=== PATIENT | female | born 1980 ===

== ENCOUNTER 2018-11-07 12:58 | Emergency (ER) | payer MEDICAID, OTHER ==
[2018-11-07 12:58] VITALS: BMI 23.9
[2018-11-07 13:12] VITALS: BP 119/84; PULSE 104; RESP 18; TEMP 98.3; O2SAT 98
--- NOTE | 2018-11-07 14:47 | C.PDOC ---
History Of Present Illness 38 y/o female with hx anxiety and depression c/o worsening symptoms in last 4 days due to relations ship issues. pt reports not sleeping or eating well. c/o nausea and insomnia. denies hi, si and ah. pt was on trazadone and zoloft in past but stopped due to sedative nature of medications. has appt with her psychiatrist next week. Time Seen by Provider: 11/07/18 13:33 Chief Complaint (Nursing): Psychiatric Evaluation History Per: Patient History/Exam Limitations: no limitations Onset/Duration Of Symptoms: Days Current Symptoms Are (Timing): Still Present Past Medical History Reviewed: Historical Data, Nursing Documentation, Vital Signs Vital Signs: Last Vital Signs Temp 98.3 F 11/07/18 13:09 Pulse 104 H 11/07/18 13:09 Resp 18 11/07/18 13:09 BP 119/84 11/07/18 13:09 Pulse Ox 98 11/07/18 13:09 - Medical History PMH: Anxiety, Depression, Post Traumatic Stress Disorder (SEXUAL TRAUMA) Surgical History: Cholecystectomy - [facility] Procedures ANESTH INJECT-SPIN CANAL (04/22/14) MONITORING NOS (03/24/14) INJECT/INFUSE NEC (03/24/14) MANUAL ASSIST DELIV NEC (04/22/14) Family History: States: Diabetes, Hypertension - Social History Hx Alcohol Use: No Hx Substance Use: No Review Of Systems Constitutional: Negative for: Fever, Chills Gastrointestinal: Positive for: Nausea Psych: Negative for: Suicidal ideation (or homicidal ideation) Physical Exam - Physical Exam Appears: Non-toxic, No Acute Distress Skin: Warm, Dry Head: Atraumatic, Normacephalic Eye(s): bilateral: Normal Inspection Extremity: Bilateral: Atraumatic, Normal Color And Temperature, Normal ROM Neurological/Psych: Oriented x3, Normal Speech ED Course And Treatment O2 Sat by Pulse Oximetry: 98 (RA) Pulse Ox Interpretation: Normal Medical Decision Making Medical Decision Making: pt not a danger to herself, will d/c with vistaril and zofran. pt to call psychiatrist shira to arrange for soonest appt and given info for [facility]/ . Disposition - Disposition Referrals: [facility] [Outside] Disposition: HOME/ ROUTINE Disposition Time: 14:56 Condition: STABLE Additional Instructions: Call your psychiatrist to make soonest appointment. Take Vistaril at bedtime to help you sleep, makes you drowsy. Zofran for nausea. Stay well hydrated. Follow up with [facility] if needed. Prescriptions: Hydroxyzine Pamoate [Vistaril] 25 mg PO Q6 #10 capsule Ondansetron ODT [Zofran ODT] 4 mg PO TID #12 odt Instructions: Anxiety, Adult (DC) Forms: [facility] ([place]) [employer] ([place]), General Discharge Instructions - Clinical Impression Clinical Impression: Anxiety - PA / [employer] / Resident Statement MD/DO has reviewed & agrees with the documentation as recorded. - Scribe Statement The provider has reviewed the documentation as recorded by the Scribe Bianka Neville All medical record entries made by the Vernonibbecki were at my direction and personally dictated by me. I have reviewed the chart and agree that the record accurately reflects my personal performance of the history, physical exam, medical decision making, and the department course for this patient. I have also personally directed, reviewed, and agree with the discharge instructions and disposition.
== END 2018-11-07 15:31 | disposition home or self-care (01) ==
LOC: C.ER 12:58
DX: F41.9 Anxiety disorder, unspecified (principal)